=== PATIENT | male | born 1990 | race African-American/Black ===

== ENCOUNTER 2019-06-08 08:23 | Emergency (ER) | payer OTHER ==
[~2019-06-08] VITALS: Ht 170.2 cm; Wt 113.4 kg
[2019-06-08 09:25] VITALS: BP 151/91
== END 2019-06-08 09:25 | disposition home or self-care (01) ==
LOC: M.ERS 08:23
DX: S60.052A Contusion of left little finger without damage to nail, initial encounter (principal); W23.1XXA Caught, crushed, jammed, or pinched between stationary objects, initial encounter; Y92.89 Other specified places as the place of occurrence of the external cause; Y99.0 Civilian activity done for income or pay; Y99.8 Other external cause status

== ENCOUNTER 2019-07-03 02:03 | Emergency (ER) | payer BC ==
[~2019-07-03] VITALS: Ht 170.2 cm; Wt 127.0 kg
[2019-07-03 02:11] VITALS: BP 137/95
[2019-07-03] MEDS ORDERED: BACTRIM DS TAB1 EAC1 PO (02:25)
== END 2019-07-03 02:33 | disposition home or self-care (01) ==
LOC: M.ERS 02:03
DX: L03.311 Cellulitis of abdominal wall (principal)

== ENCOUNTER 2021-07-28 09:03 | Emergency (ER) | payer BC ==
[~2021-07-28] VITALS: Ht 172.7 cm; Wt 140.6 kg
[~2021-07-28 09:03] MED LIST: BACTRIM DS TAB1 EAC1 PO
[2021-07-28 09:10] VITALS: BP 182/117
[2021-07-28] MEDS ORDERED: CEPHALEXIN500 MG PO (09:18)
[2021-07-28] MEDS ORDERED: PREDNISONE 20 M20 M1 PO (09:18)
== END 2021-07-28 09:24 | disposition home or self-care (01) ==
LOC: M.ERS 09:03
DX: S20.462A Insect bite (nonvenomous) of left back wall of thorax, initial encounter (principal); W57.XXXA Bitten or stung by nonvenomous insect and other nonvenomous arthropods, initial encounter; Y93.89 Activity, other specified; Y92.89 Other specified places as the place of occurrence of the external cause; Y99.8 Other external cause status